=== PATIENT | male | born 1955 | race Caucasian/White ===

== ENCOUNTER → 2016-11-02 | Outpatient (CLI) | payer OTHER ==
[2016-09-01 10:43] VITALS: BP 101/66
[~2016-11-02] MED LIST: ATOR40TA PO; B12/1TAB PO; BIOT1TAB PO; CHOL2000 PO; CYAN100031 PO; ERGO2000 PO; FENT1PAT19 TP; FENT1PAT21 TD; FEXO180T81 PO; HYDR-2666 PO; LORA0.5T96 PO; MULT-245 PO; NAPR220T70 PO; ONDA8TAB9 PO; OXYC-323 PO; OXYC10TA32 PO; PROC10TA57 PO; PROM25TA10 PO; SENN8.6T99 PO; UBID100C26 PO; VANC125C2 PO
--- NOTE | 2016-11-02 12:57 | RAD ---
Indication: Left leg pain and swelling. Grayscale, color-flow and duplex Doppler evaluation of the left lower extremity deep venous system was performed. FINDINGS: There is no evidence of a left lower extremity DVT. The left lower extremity venous system demonstrates normal compressibility with normal response to augmentation and Valsalva. No soft tissue fluid collections are identified. IMPRESSION: No evidence of left lower extremity DVT.
== END | disposition home or self-care (01) ==
LOC: US 12:07
PROVIDERS: ATTEND Internal Medicine Hematology & Oncology
DX: C25.2 Malignant neoplasm of tail of pancreas (principal); M79.605 Pain in left leg; M79.89 Other specified soft tissue disorders
CPT/HCPCS: 93971

== ENCOUNTER → 2016-11-29 | Outpatient (CLI) | payer OTHER ==
[2016-09-01 10:43] VITALS: BP 101/66
[~2016-11-29] MED LIST changes: +CONTRAST GIVEN MC PRN; +HEPARIN PF 500 UNIT/5 ML DISP.SYRIN. IV ONE; +IOHEXOL 240 MG/ML 50ML VIAL. PO ONE; +IOHEXOL 300 MG/ML 75 ML VIAL IV ONE
--- NOTE | 2016-11-29 12:59 | RAD ---
EXAM: CT OF THE CHEST, ABDOMEN AND PELVIS WITH INTRAVENOUS CONTRAST. HISTORY: Pancreatic cancer. TECHNIQUE: Computed tomography of the chest, abdomen and pelvis was performed after the intravenous administration of 75 mL Omnipaque 300. COMPARISON: 08/31/2016. FINDINGS: Bone windows reveal multiple sclerotic lesions throughout the right ribs, lumbar spine and pelvis, not clearly changed. A right-sided port catheter has its tip in the superior cavoatrial junction. There are small right and trace left pleural effusions. There is no pericardial effusion. There are no pathologically enlarged mediastinal or axillary lymph nodes. The heart is not enlarged. A small nodule along right minor fissure is stable and is most likely an intrafissural lymph node. There is mild atelectasis dependently. There are no clearly suspicious pulmonary nodules. A 16 mm low-density lesion in the right hepatic lobe appears to be a cyst and is stable. The previously noted mass in hepatic segment 7 is no longer clearly seen. The spleen is mildly enlarged at 14 cm. The gallbladder is distended but not clearly inflamed. The adrenal glands and kidneys are unremarkable. The primary mass at the pancreatic tail is no are clearly seen. The splenic vein remains occluded with associated collateralization. There is stranding within the omentum concerning for omental metastatic disease. This appears stable. There is no significant ascites. There is no obstruction or hydronephrosis. There are no pathologically enlarged lymph nodes. IMPRESSION: 1. The mass at the pancreatic tail is no motion detectable. The previously noted metastasis in the right hepatic lobe is now undetectable. 2. Stranding within the omentum is consistent with metastatic disease. No gross ascites. 3. Decreased small right pleural effusion. 4. Mild splenomegaly. 5. Stable osseous metastatic disease. *One or more of the following individualized dose reduction techniques were utilized for this examination: 1. Automated exposure control. 2. Adjustment of the mA and/or kV according to patient size. 3. Use of iterative reconstruction technique.
== END | disposition home or self-care (01) ==
LOC: CT 08:45
PROVIDERS: ATTEND Internal Medicine Hematology & Oncology
DX: C25.2 Malignant neoplasm of tail of pancreas (principal); R52 Pain, unspecified; J90 Pleural effusion, not elsewhere classified; R16.1 Splenomegaly, not elsewhere classified; C79.51 Secondary malignant neoplasm of bone
CPT/HCPCS: 71260; 74177; Q9966; Q9967

== ENCOUNTER → 2017-01-10 | Outpatient (CLI) | payer OTHER ==
[2016-09-01 10:43] VITALS: BP 101/66
[~2017-01-10] MED LIST changes: -HEPARIN PF 500 UNIT/5 ML DISP.SYRIN. IV ONE
--- NOTE | 2017-01-10 14:06 | RAD ---
CT of the chest, abdomen and pelvis with contrast, 01/10/2017: History: Pancreatic cancer follow-up Multidetector CT imaging was performed following oral and IV administration of contrast. Comparison is made to a study from 11/29/2016. A right Port-A-Cath remains in place extending into the superior vena cava. No mediastinal or hilar adenopathy is seen. Minimal coronary artery calcification is noted. There is a small volume of pleural fluid on the right, slightly decreased since the previous study. There is mild underlying atelectasis posteriorly in the right lower lobe. A tiny, slightly dense nodule in the right lower lobe is probably a granuloma. There are several calcified lymph nodes at the right hilum. No pulmonary mass or acute infiltrate is seen. There is an unchanged small low density lesion in the anterolateral aspect of the right lobe of the liver compatible with a cyst. There is a tiny unchanged subcapsular area of decreased density with a punctate calcification in the posterolateral aspect of the right lobe of the liver. This lies at the level where a metastasis was evident on older exams. No new hepatic abnormality is seen. The gallbladder is mildly distended no dense gallstones are seen. The low-density lesion seen in the tail of the pancreas on older studies is no longer visible. The spleen is mildly enlarged, unchanged since 11/29/2016. There are probable small parapelvic renal cysts on the left. The kidneys and adrenal glands are otherwise unremarkable. The abdominal aorta is of normal caliber. No para-aortic, iliac or inguinal adenopathy is seen. There are streaky and tiny nodular opacities in the omentum similar to on the previous study. The bowel loops are not dilated. A trace amount of ascites evident on the previous study has nearly completely resolved. There are multiple scattered sclerotic bony foci including lesions in the spine, sternum, bilateral ribs, right scapula and left hemipelvis. These appear to be unchanged. IMPRESSION: 1. No pancreatic mass is currently seen. 2. Unchanged omental stranding and faint nodularity. 3. Unchanged mild splenomegaly. 5. Improving small right pleural effusion. 6. Stable multifocal blastic osseous metastatic disease. 7. No new abnormality is detected. PQRS Compliance Statement: One or more of the following individualized dose reduction techniques were utilized for this examination: 1. Automated exposure control 2. Adjustment of the mA and/or kV according to patient size 3. Use of iterative reconstruction technique
== END | disposition home or self-care (01) ==
LOC: CT 10:27
PROVIDERS: ATTEND Internal Medicine Hematology & Oncology
DX: C25.2 Malignant neoplasm of tail of pancreas (principal)
CPT/HCPCS: 71260; 74177; Q9966; Q9967

== ENCOUNTER → 2017-02-24 | Outpatient (CLI) | payer OTHER ==
[2016-09-01 10:43] VITALS: BP 101/66
[~2017-02-24] MED LIST changes: -CONTRAST GIVEN MC PRN; -IOHEXOL 240 MG/ML 50ML VIAL. PO ONE
--- NOTE | 2017-02-24 12:50 | RAD ---
Examination: CT chest abdomen pelvis History: History of cancer of the pancreas for comparison: 01/10/2017 Technique: Axial CT images of the chest abdomen pelvis was performed with contrast using pancreas protocol. Coronal and sagittal reformats are performed PQRS Compliance Statement: One or more of the following individualized dose reduction techniques were utilized for this examination: 1. Automated exposure control 2. Adjustment of the mA and/or kV according to patient size 3. Use of iterative reconstruction technique Findings: Right-sided Port-A-Cath is unchanged The heart size grossly appears unremarkable. Mild coronary artery calcifications identified. No evidence of pericardial effusion. Noted likely significant mediastinal lymphadenopathy is identified Minimal bibasal lung atelectasis with scarring changes. The caliber of the aorta grossly appears unremarkable. There is a cystic structure identified in the liver grossly similar to prior exam likely a cyst. There is a unchanged subcapsular punctate calcification identified in the right lobe of the liver similar to prior exam. The gallbladder is mildly distended. The visualized pancreas grossly appears unremarkable. The visualized spleen mildly enlarged. The caliber of the abdominal aorta grossly appears unremarkable .mild aortic atherosclerosis. No radiologically significant retroperitoneal or inguinal lymph nodes or iliac lymph nodes identified. Streaky tiny nodular prominence in the omentum is again identified. The nodularity may be somewhat mildly increased compared to prior exam The small bowel is nondilated. The stomach is mildly distended. Feces and gas noted throughout the colon The urinary bladder is mildly distended. The bilateral kidneys enhance symmetrically. Left parapelvic cysts are similar to prior exam. Multiple sclerotic bony foci identified in the spine, sternum, bilateral ribs, right scapula and left hemipelvis similar to prior exam. Impression: 1. No obvious pancreatic lesion visualized. 2. Omental stranding with faint nodularity may have slightly increased compared to prior exam. Follow-up PET CT scan can be considered. 3. Mild splenomegaly. 4. Multifocal sclerotic metastasis stable since prior exam.
== END | disposition home or self-care (01) ==
LOC: CT 07:41
PROVIDERS: ATTEND Internal Medicine Hematology & Oncology
DX: C25.2 Malignant neoplasm of tail of pancreas (principal)
CPT/HCPCS: 71260; 74177; Q9967